=== PATIENT | female | born 1985 | race Caucasian/White ===

== ENCOUNTER 2021-10-03 09:45 | Outpatient (RCR) | payer BC, SELFPAY ==
[2021-09-08 10:53] VITALS: BMI 33.5
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
--- NOTE | 2021-09-11 16:21 | PC.NURSE ---
Case opened in treatment team.
--- NOTE | 2021-09-12 15:29 | HO.PHPPROGNO ---
Subjective Subjective Date of Service: 09/12/21 Reason For Visit: anxiety, severe PTSD, post depression Guardianship: No Medical Problems Affecting Mental Status: No Interim History: Describes mood as I'm doing much better . No SI/HI, reports she feels safe . Says seroquel is helping with sleep. Would prefer to lower am gabapentin dose, due to sedating side effects. Continues with nightmares, but does not recall details upon awakening. Medication Compliance: Yes Side effects from medications: Yes (sedation from gabapentin) Attending Groups: Yes Review of Systems Acute medical concerns: No Medical Review of Systems: unchanged Review of Systems Review of Systems Yes all other systems are reviewed and are negative Constitutional: Reports no additional constitutional complaints Mental Status Exam Mental Status Exam Narrative: Well developed, overweight female, in NAD. No abnormal body movements, no tics or tremors noted. Denies any SI/HI, denies any AH/VH. Patient Appearance: Well Grooomed and Appropriate Patient Orientation: Person, Place, Time and Situation Level of Consciousness: Awake and Alert Patient Behavior: Appropriate, Cooperative and Good Eye Contact Mood Description: Calm Affect Description: Anxious (anxious, although improved) Patient Cognition Impaired: No Ability to Follow Directions: Excellent Speech Pattern: Clear, Appropriate and Coherent Memory Description: Intact Hallucinations: None Delusions: Not Present Thought Process: Intact Thought Content: positive for Intact and positive for Goal Oriented Judgement: Fair Diagnostics Vital Signs (24Hr): BMI result Body Mass Index 33.5 Assessment & Plan Assessment & Plan (1) Post-traumatic stress disorder, chronic: Status: Acute Code(s): F43.12 - Post-traumatic stress disorder, chronic Assessment and Plan: Describes mood as I'm doing much better . No SI/HI, reports she feels safe . States she and her are now able to have a civil conversation . Reports overall her mood is more stabliized, less anxious, less distraught. Says seroquel is helping with sleep. Would prefer to lower am gabapentin dose, due to sedating side effects. Plan is take gabapentin 200mg in am, 200mg mid-day, and 300mg at night. She has ample supply of 100mg at home, does not need a script at this time. Continues with nightmares r/t ptsd, but does not recall details upon awakening. She says she knows she is having them because she wakes up sweating, feeling as if she has had a terrible nightmare. Discussed possibility of adding a low dose prazosin. However, patient reports she tends to have a very low blood pressure normally, and we discussed risk of lowered BP with the medication. She has decided to hold off on this medication at this time. Plan 1. Continue with seroquel 25mg at bedtime. 2. Lower gabapentin to 200mg in morning, 200mg at mid-day, and 300mg at bedtime. 3. Continue with all other medications as prescribed. 4. Continue with current [facility] plan of care. 5. Follow-up as per protocol. Patient educated on: diagnosis, medication risk/benefits, therapeutic strategies and medical condition Informed Consent: understands Reason for contiued partial hosp. stay Substantial Risk for: harm to self, inability to function, rapid decompensation and med/psych decompensation Certification I certify that partial hospital treatment is medically necessary due to the symptoms and problems resulting from the patient's mental illness and the failure to treat the patient at the partial hospital level of care would likely result in the patient requiring inpatient psychiatric care which could not be prevented at a less intensive level of care. I spent minutes with the patient and/or on the patient floor today, greater than?50% of which was spent counseling/coordinating care. Discharge Plan Discharge Attending provider: Pedro Melo Medications: New gabapentin 100 mg capsule See Rx Instructions .ROUTE .COMPLEX 7 Days Qty: 56 0RF Rx Instructions: Take gabapentin 300mg in am, 200mg midday, and 300mg at bedtime. quetiapine 25 mg tablet 25 mg PO BEDTIME 30 Days Qty: 30 0RF Discontinued gabapentin 300 mg Tablet 300 mg PO TID 0RF No Action hydroxyzine HCl 50 mg Tablet 50 mg PO QID PRN (Reason: Anxiety) 0RF lorazepam 1 mg Tablet 1 mg PO DAILY PRN (Reason: Anxiety) 0RF Label Comments: Patient stated she was told to start taking as needed. melatonin 5 mg Tablet 5 mg PO BEDTIME 0RF Telehealth Telehealth Location of provider rendering services: practice address Location of patient: address on file Patient Identification confirmed using: Name, : Yes Telehealth method: video Patient verbally consented to treatment: Yes Patient verbally consented to billing insurance company: Yes Patient informed of any privacy concerns related to visit: Yes Time spent with patient (mins): 15
--- NOTE | 2021-09-15 10:53 | P.PNPSP_ITS ---
Subjective Subjective Date of Service: 09/15/21 Reason For Visit: anxiety, severe PTSD, post depression Guardianship: No Medical Problems Affecting Mental Status: No Interim History: Patient states ?I am okay, having big feelings . She explains that today is the 1st day back at the [facility] along with her and son. No thoughts of SI/HI, no safety concern. Has noticed feeling down over past week, describes symptoms of dysphoric mood. Medication Compliance: Yes Side effects from medications: No Attending Groups: Yes Review of Systems Acute medical concerns: No Medical Review of Systems: unchanged Review of Systems Review of Systems Yes all other systems are reviewed and are negative Constitutional: Reports no additional constitutional complaints Mental Status Exam Mental Status Exam Narrative: Well-developed, well-nourished, in NAD. Fully alert and oriented, attentive during encounter, asking appropriate questions. No SI/HI. No evidence of any type of manic/hypomanic symptoms observed. Patient Appearance: Well Grooomed and Appropriate Patient Orientation: Person, Place, Time and Situation Level of Consciousness: Awake, Appropriate and Alert Patient Behavior: Appropriate, Cooperative and Good Eye Contact Mood Description: Depressed (Feels that she is feeling a little more depressed this week.) Affect Description: Appropriate and Depressed Patient Cognition Impaired: No Ability to Follow Directions: Excellent Speech Pattern: Clear, Appropriate and Coherent Memory Description: Intact Hallucinations: None Delusions: Not Present Thought Process: Intact, Goal Oriented and Linear Thought Content: positive for Intact Depressive Symptoms: Increased Anxiety, Loss of Int. in Activity and Unhappiness Judgement: Fair Diagnostics Vital Signs (24Hr): BMI result Body Mass Index 33.5 Assessment & Plan Assessment & Plan (1) Post-traumatic stress disorder, chronic: Status: Acute Code(s): F43.12 - Post-traumatic stress disorder, chronic Assessment and Plan: Patient reports small increase in depressive symptoms. We discussed her treatment regimen in detail. She has recently lower dose of gabapentin. She also has moved back into the home with her and young son, contemplating moving out and seeking divorce. Reports feeling both anxious and depressed at times. Denies any symptoms of hypomania. Discussed increasing dose of Seroquel to 50 mg for mood stabilization. Discussed possibility of adding a antidepressant during next encounter, if no relief with the increased Seroquel. She was in agreement with this. Plan 1. Continue with current [facility] plan of care. 2. Increase Seroquel to 50 mg daily. Patient has ample supply of 25 mg, will take 2 at night, does not need new script at this time. 3. Follow-up as per protocol. Patient educated on: diagnosis, medication risk/benefits and therapeutic strategies Informed Consent: understands Reason for contiued partial hosp. stay Substantial Risk for: inability to function and med/psych decompensation Certification I certify that partial hospital treatment is medically necessary due to the symptoms and problems resulting from the patient's mental illness and the failure to treat the patient at the partial hospital level of care would likely result in the patient requiring inpatient psychiatric care which could not be prevented at a less intensive level of care. I spent minutes with the patient and/or on the patient floor today, greater than?50% of which was spent counseling/coordinating care. Discharge Plan Discharge Attending provider: Pedro Melo Medications: New gabapentin 100 mg capsule See Rx Instructions .ROUTE .COMPLEX 7 Days Qty: 56 0RF Rx Instructions: Take gabapentin 300mg in am, 200mg midday, and 300mg at bedtime. quetiapine 25 mg tablet 25 mg PO BEDTIME 30 Days Qty: 30 0RF Discontinued gabapentin 300 mg Tablet 300 mg PO TID 0RF No Action hydroxyzine HCl 50 mg Tablet 50 mg PO QID PRN (Reason: Anxiety) 0RF lorazepam 1 mg Tablet 1 mg PO DAILY PRN (Reason: Anxiety) 0RF Label Comments: Patient stated she was told to start taking as needed. melatonin 5 mg Tablet 5 mg PO BEDTIME 0RF Telehealth Telehealth Location of provider rendering services: practice address Location of patient: address on file Patient Identification confirmed using: Name, : Yes Telehealth method: video Patient verbally consented to treatment: Yes Patient verbally consented to billing insurance company: Yes Patient informed of any privacy concerns related to visit: Yes Time spent with patient (mins): 15
--- NOTE | 2021-09-19 15:35 | PC.NURSE ---
At pt's request, I called [facility] in [place] and requested she be referred to a therapist. Pt informed me that she has an appt with a med provider on 09/28/21, but she said she doesnt think she has been referred for therapy as well. She ahs been seeing a therapist on [facility], but it's too expensive and pt would like a more local therapist. I spoke to Cody at [facility], who put me on hold to speak to a pipe finishing supervisor. When she returned, she said pt has already had an intake for individual therapy, and is on a wait list. She was not able to tell me how long the wait time would by, but she did say that a discharge from [facility] is considered a hospital discharge , and is prioritized. She said pt has an in-person med management appointment with Jacqueline Elliott on 09/28/21 at 11am.
--- NOTE | 2021-09-20 15:36 | P.PNPSP_ITS ---
Subjective Subjective Date of Service: 09/20/21 Reason For Visit: anxiety, severe PTSD, depression Guardianship: No Medical Problems Affecting Mental Status: No Interim History: Describes mood as ?a low level, down, not severe depression, but depressed. Denies SI/HI. Denies any thought of harm to self or others, no safety concerns at this time. Reports increased dose of Seroquel 50 mg has been helping. Need refill of Seroquel and gabapentin. Still considering Wellbutrin. Medication Compliance: Yes Side effects from medications: No Attending Groups: Yes Review of Systems Acute medical concerns: No Medical Review of Systems: unchanged Review of Systems Review of Systems Yes all other systems are reviewed and are negative Constitutional: Reports no additional constitutional complaints Mental Status Exam Mental Status Exam Narrative: In NAD. Fully alert and oriented, attentive during encounter, asking ap propriate questions. No SI/HI. No evidence of any type of manic/hypomanic symptoms observed. Patient Appearance: Well Grooomed and Appropriate Patient Orientation: Person, Place, Time and Situation Level of Consciousness: Awake, Appropriate and Alert Patient Behavior: Appropriate, Cooperative and Good Eye Contact Mood Description: Depressed ( A low level, down .) Affect Description: Depressed Patient Cognition Impaired: No Ability to Follow Directions: Excellent Speech Pattern: Clear, Appropriate and Coherent Memory Description: Intact Hallucinations: None Delusions: Not Present Thought Process: Intact, Goal Oriented and Linear Thought Content: positive for Intact, positive for Goal Oriented, positive for Linear and positive for Logical Depressive Symptoms: Increased Anxiety, Diff. Making Decisions, Loss of Int. in Activity, Unhappiness and Difficulty Concentrating Judgement: Fair Diagnostics Vital Signs (24Hr): BMI result Body Mass Index 33.5 Assessment & Plan Assessment & Plan (1) Post-traumatic stress disorder, chronic: Status: Acute Code(s): F43.12 - Post-traumatic stress disorder, chronic Assessment and Plan: Patient reports melatonin is working for sleep. Reports the increased dose of Seroquel is helping with mood stabilization and sleep. Is satisfied with current dose of gabapentin, takes 200 mg in the morning, 200 mg mid day, 300 at bedtime. Continues with dysphoric mood. Denies any SI HI, no safety concern. Reports that as a child she had been diagnosed with ADHD and was prescribed Adderall. Also reports that she took phentermine after of her child. Asking if either 1 of these medications could possibly induce hypomania. She is currently not prescribe either 1 of these meds. We discussed mood stabilization, and then possible trial of Wellbutrin. It was explained that Wellbutrin can help with both depression and adult ADHD symptoms. Discussed medication in detail, including risks, benefits, side effects, possible adverse reactions. She was in agreement that she would prefer to wait at this time. She states she is not sure if her depressed mood is truly depression, or if it is related to current stressors, as well as life circumstances. She reports she is finding [facility] groups to be helpful. Patient reports she does have periods where she becomes anxious during the day. She has also expressed concern about being able to return to work in function fully during the day. She describes her position as a high stress job. We discussed a trial of low-dose Seroquel 12.5 for anxiety during day, p.r.n.. She stated she would try it once and discussed during next visit, if she found it helpful and not sedating. This would replace hydroxyzine p.r.n., and possibly the lorazepam prn. Current medications are as follows: Seroquel 50 mg at bedtime. Seroquel 12.5 mg once daily p.r.n. For anxiety. Gabapentin 200 mg in the morning, 200 mg mid day, 300 mg at bedtime. Melatonin 5 mg 1-2 hours prior to bedtime. Currently has hydroxyzine 50 mg p.r.n. q.i.d. for anxiety. Lorazepam 1 mg p.o. daily p.r.n. for anxiety. Plan 1. Continue with current [facility] plan of care. 2. Patient to trial Seroquel 12.5 mg p.r.n. once daily for anxiety. 3. All other medications to remain as prescribed, refills sent to pharmacy. 4. Follow-up as per protocol. Patient educated on: diagnosis, medication risk/benefits and therapeutic strategies Informed Consent: understands Reason for contiued partial hosp. stay Substantial Risk for: inability to function, rapid decompensation and med/psych decompensation Certification I certify that partial hospital treatment is medically necessary due to the symptoms and problems resulting from the patient's mental illness and the failure to treat the patient at the partial hospital level of care would likely result in the patient requiring inpatient psychiatric care which could not be prevented at a less intensive level of care. I spent ___30___ minutes with the patient and/or on the patient floor today, greater than?50% of which was spent counseling/coordinating care. Discharge Plan Discharge Attending provider: Pedro Melo Additional Instructions: In-person medication management appointment at [facility] in [place] ([place]) with Jacqueline Elliott on 09/28/21 at 11am. Medications: New quetiapine 25 mg tablet 25 mg PO BEDTIME 30 Days Qty: 30 0RF gabapentin 100 mg capsule See Rx Instructions .ROUTE .COMPLEX 30 Days Qty: 120 0RF Rx Instructions: 200 mg orally in morning, and 200mg orally in afternoon. gabapentin 300 mg capsule 300 mg PO BEDTIME 30 Days Qty: 30 0RF quetiapine [Seroquel] 50 mg tablet 50 mg PO BEDTIME 30 Days Qty: 30 0RF Discontinued gabapentin 300 mg Tablet 300 mg PO TID 0RF No Action hydroxyzine HCl 50 mg Tablet 50 mg PO QID PRN (Reason: Anxiety) 0RF lorazepam 1 mg Tablet 1 mg PO DAILY PRN (Reason: Anxiety) 0RF Label Comments: Patient stated she was told to start taking as needed. melatonin 5 mg Tablet 5 mg PO BEDTIME 0RF Stand Alone Forms: Patient Portal Discharge page Telehealth Telehealth Location of provider rendering services: practice address Location of patient: address on file Patient Identification confirmed using: Name, : Yes Telehealth method: video Patient verbally consented to treatment: Yes Patient verbally consented to billing insurance company: Yes Patient informed of any privacy concerns related to visit: Yes Minutes spent on Phone/Video with Pt.: 20
--- NOTE | 2021-09-27 14:01 | HO.PHPPROGNO ---
Subjective Subjective Date of Service: 09/27/21 Reason For Visit: anxiety, severe PTSD, depression Guardianship: No Medical Problems Affecting Mental Status: No Interim History: Reports dysphoric mood, states symptoms of depression have increased. Fighting to not isolate, forcing self to get out of bed, eat, attend to ADLs. Denies any thought of harm to self or others, no SI, no safety concerns. Asking for antidepressant, needs melatonin refill. Medication Compliance: Yes Side effects from medications: No Attending Groups: Yes Review of Systems Acute medical concerns: No Review of Systems Review of Systems Yes all other systems are reviewed and are negative Constitutional: Reports no additional constitutional complaints Mental Status Exam Mental Status Exam Narrative: NAD. Fully alert and engaged during encounter. Patient Appearance: Well Grooomed and Appropriate Patient Orientation: Person, Place, Time and Situation Level of Consciousness: Awake, Appropriate and Alert Patient Behavior: Appropriate, Cooperative and Good Eye Contact Mood Description: Depressed Affect Description: Flat Patient Cognition Impaired: No Ability to Follow Directions: Excellent Speech Pattern: Clear, Appropriate and Coherent Memory Description: Intact Hallucinations: None Delusions: Not Present Thought Process: Intact, Goal Oriented and Linear Thought Content: positive for Intact, positive for Goal Oriented, positive for Linear and positive for Logical Depressive Symptoms: Increased Anxiety, Diff. Making Decisions, Changes in Appetite, Loss of Int. in Activity, Unhappiness and Difficulty Concentrating Judgement: Fair Diagnostics Vital Signs (24Hr): BMI result Body Mass Index 33.5 Assessment & Plan Assessment & Plan (1) Post-traumatic stress disorder, chronic: Status: Acute Code(s): F43.12 - Post-traumatic stress disorder, chronic Assessment and Plan: Reports dysphoric mood, states symptoms of depression have increased. Fighting to not isolate, forcing self to get out of bed, eat, attend to ADLs. Denies any thought of harm to self or others, no SI, no safety concerns. Would like to trial Wellbutrin at this time. I full discussion ensued, including discussing indications, risks; including adverse effects both serious uncommon, benefits, and alternatives of treatment recommendations. Discussed possibility that if she truly does have an underlying bipolar disorder, adding an antidepressant such as Wellbutrin could possibly cause a hypomanic/manic state. Discussed symptoms to be alert for, including distractibility, insomnia, grandiosity, flight of ideas, increased goal-directed activities, pressured speech, engagement in risky behaviors. She demonstrated her understanding, asked appropriate questions. After this conversation, she was still willing to start a low-dose Wellbutrin at this time. She has continued with Seroquel, utilizing 50 mg at bedtime, and she has 25 mg as a p.r.n., which is also available in . (instructed to take 1/2 tab of 25mg) during the day if needed for anxiety. She understands that Seroquel is also working as a mood stabilizer. She does have a long history of taking sertraline, without any symptoms of hypomania, josie. However, prior to her recent inpatient stay, her provider had increased the dose of sertraline, and she also went on a trip to [place]. It was during that time that she 1st displayed hypomanic symptoms, and when she returned to [place] she required inpatient level of care. Prior to that she had been stable for years with the sertraline. Plan 1. Trial Wellbutrin 100 mg daily. Script sent to pharmacy. 2. Patient advised to stop medication if any symptoms of hypomania/josie occur. 3. Continue with current [facility] plan of care. 4. Follow-up as per protocol. Patient educated on: diagnosis, medication risk/benefits and therapeutic strategies Informed Consent: understands Reason for contiued partial hosp. stay Substantial Risk for: inability to function, rapid decompensation and med/psych decompensation Certification I certify that partial hospital treatment is medically necessary due to the symptoms and problems resulting from the patient's mental illness and the failure to treat the patient at the partial hospital level of care would likely result in the patient requiring inpatient psychiatric care which could not be prevented at a less intensive level of care. I spent ____30__ minutes with the patient and/or on the patient floor today, greater than?50% of which was spent counseling/coordinating care. Discharge Plan Discharge Attending provider: Pedro Melo Additional Instructions: In-person medication management appointment at [facility]) in [place] ([place]) with Jacqueline Elliott on 09/28/21 at 11am. Medications: New quetiapine 25 mg tablet 25 mg PO BEDTIME 30 Days Qty: 30 0RF gabapentin 100 mg capsule See Rx Instructions .ROUTE .COMPLEX 30 Days Qty: 120 0RF Rx Instructions: 200 mg orally in morning, and 200mg orally in afternoon. gabapentin 300 mg capsule 300 mg PO BEDTIME 30 Days Qty: 30 0RF quetiapine [Seroquel] 50 mg tablet 50 mg PO BEDTIME 30 Days Qty: 30 0RF bupropion HCl 100 mg tablet 100 mg PO DAILY 14 Days Qty: 14 0RF melatonin 5 mg tablet 5 mg PO BEDTIME PRN (Reason: sleep) Qty: 30 0RF Discontinued gabapentin 300 mg Tablet 300 mg PO TID 0RF melatonin 5 mg Tablet 5 mg PO BEDTIME 0RF No Action hydroxyzine HCl 50 mg Tablet 50 mg PO QID PRN (Reason: Anxiety) 0RF lorazepam 1 mg Tablet 1 mg PO DAILY PRN (Reason: Anxiety) 0RF Label Comments: Patient stated she was told to start taking as needed. Stand Alone Forms: Patient Portal Discharge page Telehealth Telehealth Location of provider rendering services: practice address Location of patient: address on file Patient Identification confirmed using: Name, : Yes Telehealth method: video Patient verbally consented to treatment: Yes Patient verbally consented to billing insurance company: Yes Patient informed of any privacy concerns related to visit: Yes Minutes spent on Phone/Video with Pt.: 20
--- NOTE | 2021-10-03 13:18 | PC.NURSE ---
Patient scheduled to discharge from the program today. Patient reports feeling, really good regarding discharge. Patient denied any safety issues, no SI. Reviewed patient medications with patient. Patient reports taking the medications as prescribed.
--- NOTE | 2021-10-03 19:02 | HO.PHPPROGNO ---
Subjective Subjective Date of Service: 10/03/21 Reason For Visit: anxiety, severe PTSD, depression Interim History: Patient seen and discussed with team. Patient evaluated today and upon interview she denies any symptoms of hypomania. Denies any mood or behavioral issues. Sleep is great. Says she is in a really great mood. Medication Compliance: Yes Side effects from medications: No Attending Groups: Yes Review of Systems Acute medical concerns: No Medical Review of Systems: unchanged Mental Status Exam Mental Status Exam Narrative: NAD.? Fully alert and engaged during encounter. Patient Appearance:?Well Groomed and Appropriate Patient Orientation:?Person, Place, Time and Situation Level of Consciousness:?Awake, Appropriate and Alert Patient Behavior:?Appropriate, Cooperative and Good Eye Contact Mood Description:? really good Affect Description:?Flat Patient Cognition Impaired:?No Ability to Follow Directions:?Excellent Speech Pattern:?Clear, Appropriate and Coherent Memory Description:?Intact Hallucinations:?None Delusions:?Not Present Thought Process:?Intact, Goal Oriented and Linear Thought Content:?positive for Intact, positive for Goal Oriented, positive for Linear and positive for Logical Depressive Symptoms:?Increased Anxiety, Diff. Making Decisions, Changes in Appetite, Loss of Int. in Activity, Unhappiness and Difficulty Concentrating Judgment:?Fair Diagnostics Vital Signs (24Hr): BMI result Body Mass Index 33.5 Assessment & Plan Assessment & Plan (1) Post-traumatic stress disorder, chronic: Status: Acute Code(s): F43.12 - Post-traumatic stress disorder, chronic Assessment and Plan: Currently reporting benefit on wellbutrin trial and denies activating SE. Says she is sleeping well. Discussed switching to wellbutrin XL 150 mg QAM, as this is better tolerated and has better efficacy due to half life. Plan 1. Switch to Wellbutrin XL 150 mg daily.? Script sent to pharmacy. 2. Patient advised to stop medication if any symptoms of hypomania/josie occur. 3. Continue with current [facility] plan of care. 4. Follow-up as per protocol. Patient educated on: medication risk/benefits Certification I certify that partial hospital treatment is medically necessary due to the symptoms and problems resulting from the patient's mental illness and the failure to treat the patient at the partial hospital level of care would likely result in the patient requiring inpatient psychiatric care which could not be prevented at a less intensive level of care. I spent minutes with the patient and/or on the patient floor today, greater than?50% of which was spent counseling/coordinating care. Discharge Plan Discharge Attending provider: Pedro Melo Additional Instructions: In-person medication management appointment at [facility] ([facility]) in [place] ([place]) with Jacqueline Elliott on 10/24/21 at 11:30am. Assigned therapist at [facility] pending. Appointment with therapist Isabell Gregory on [facility] today, 10/03/21 at 4pm. Continue with [facility] therapist until assigned a therapist at [facility]. Medications: New gabapentin 300 mg capsule 300 mg PO BEDTIME 30 Days Qty: 30 0RF quetiapine [Seroquel] 50 mg tablet 50 mg PO BEDTIME 30 Days Qty: 30 0RF melatonin 5 mg tablet 5 mg PO BEDTIME PRN (Reason: sleep) Qty: 30 0RF bupropion HCl [Wellbutrin XL] 150 mg tablet extended release 24 hr 150 mg PO QAM Qty: 30 0RF Continued gabapentin 100 mg capsule See Rx Instructions .ROUTE .COMPLEX 30 Days Qty: 120 0RF Rx Instructions: 200 mg orally in morning, and 200mg orally in afternoon. Discontinued gabapentin 300 mg Tablet 300 mg PO TID 0RF melatonin 5 mg Tablet 5 mg PO BEDTIME 0RF No Action hydroxyzine HCl 50 mg Tablet 50 mg PO QID PRN (Reason: Anxiety) 0RF lorazepam 1 mg Tablet 1 mg PO DAILY PRN (Reason: Anxiety) 0RF Label Comments: Patient stated she was told to start taking as needed. Stand Alone Forms: Patient Portal Discharge page
== END 2021-10-03 23:59 | disposition home or self-care (01) ==
LOC: HO.PHPA 09:45
PROVIDERS: Visit Provider Psychiatry & Neurology Psychiatry
DX: F43.12 Post-traumatic stress disorder, chronic (principal); Z79.899 Other long term (current) drug therapy
CPT/HCPCS: 90791; 90853